=== PATIENT | male | born 2000 | race Caucasian/White ===

== ENCOUNTER 2022-06-27 15:18 | Emergency (ER) | payer BC ==
[2022-06-27 17:28] LABS: CHLORIDE,CL 103 mmol/L (98-107); SODIUM,NA 139 mmol/L (136-145)
[2022-06-27 17:29] LABS: ANION GAP 12.3 mmol/L (5-15); ESTIMATED GFR 125 mL/min (>=60)
[2022-06-27] MEDS: Iopamidol 612 MG/ML 100 ML Bottle IVPUSH ONE (17:57)
== END 2022-06-27 20:11 | disposition home or self-care (01) ==
LOC: VM.ED 15:18
DX: A08.4 Viral intestinal infection, unspecified (principal)
CPT/HCPCS: 36415; 80053; 81001; 83690; 85025; 86140; 99284; Q9967